=== PATIENT | male | born 1965 | race Two or more races ===

== ENCOUNTER 2017-08-23 16:59 | Emergency (ER) | payer OTHER ==
[2017-08-23 17:05] VITALS: RESP 16; TEMP 98.1; O2SAT 96
[2017-08-23] MEDS ORDERED: ACETAMINOPHEN 500 MG TAB PO ONE (17:36)
[2017-08-23] MEDS ORDERED: NS 1,000 ML IV ONE (20:50)
--- NOTE | 2017-08-23 20:56 | EDPHY ---
H & P Smoking Status: Never smoked Time Seen by Provider: 08/23/17 19:12 HPI/ROS: HPI Right big toe infection. 52-year-old male by private vehicle with his daughter. This patient reports that he had an ingrown toenail, right big toe, removed last Saturday. Reports that he has had increased pain and redness and pus from the area of the toenail removal over the last couple of days. He reports he notice right after the toenail was removed he had some blackish discoloration to the area of his distal toe around the nail. Denies a history of diabetes. ROS: Constitutional: No fever, no chills. No weakness. Musculoskeletal: As above. Skin: As above Neurological: No focal weakness or altered sensation. Past medical history: Denies any significant past medical history. Social history: Nonsmoker. No alcohol. Here with his daughter who speaks [place]. Physical Exam: General Appearance: Alert, no distress. This patient is responding to questions appropriately and in full sentences. This patient appears well- hydrated and well-nourished. Eyes: Pupils equal and round no pallor or injection. No lid edema, erythema or injection. Right big toe exam: The lateral 1/3 of the toenail has been removed at the base. There is a ulceration in its place that is purulent. The flash immediately around this ulceration is edematous and necrotic looking with blackish discoloration likely gangrene. The toe is otherwise neurovascularly intact. He has a strong dorsalis pedis pulse. Neurological: Motor sensory function is grossly intact. Cranial nerves are normal. Gait is normal. Skin: Warm and dry, no rashes. As above. Extremities are symmetrical except noted. All joints range without pain or impingement. Psychiatric: No agitation. No depression. Database: EKG: Imaging: Left big toe x-ray series: Procedures: Emergency department course: Care primarily turned over to physician temporary administrative assistant tear ride at 9:00 p.m.. Please see her notation for remaining emergency department course and disposition. Differential Diagnosis: The differential diagnosis on this patient includes but is not limited to infection of right big toe, gangrene of right big toe. This represents a partial list of diagnoses considered. These considerations are based on history , physical exam, past history, reassessment and diagnostic testing. (McCollester ,Mariah B) Constitutional: Initial Vital Signs Temperature (C) 36.7 C 08/23/17 17:02 Heart Rate 62 08/23/17 17:02 Respiratory Rate 16 08/23/17 17:02 Blood Pressure 127/65 H 08/23/17 17:02 O2 Sat (%) 96 08/23/17 17:02 O2 Delivery Mode Room Air Allergies/Adverse Reactions: No Known Allergies Allergy (Unverified 08/23/17 17:02) Home Medications: Medication Instructions Recorded Cephalexin [Keflex (*)] 500 mg PO QID #40 cap 08/23/17 Sulfamethox/Tmp 800/160 mg 1 tab PO BID #20 tab 08/23/17 [Bactrim Ds] Medical Decision Making - Diagnostics Imaging Results: Imaging Impressions Toe X-Ray 08/23/17 19:44 Impression: No evidence for an acute fracture. Chronic findings, as above. Care Turn Over: Received care patient from Dr. Singletary at 9:34 p.m. patient reports through his daughter that he developed the blackness to his toe over 1 day. On Saturday he had his toenail removed partially by his primary care provider. Denies any history of diabetes. Labs reviewed and grossly unremarkable including no signs of diabetes mellitus. Physical exam: Right big toe: Partial lateral 1/3 removed to the base. There is ulcerations and purulence with surrounding black necrotic looking material. Patient has strong pulses. Full Range of motion at his PIP and MTP joint. Light touch sensation intact. Given IV vancomycin. Patient will be discharged on Keflex Bactrim with follow up outpatient with a surgical wound clinic. Patient understands that he may have to have the area debrided and/or partially amputated if this fails. (Merna Villa) - Data Points Laboratory Results: Laboratory Results 08/23/17 20:55 08/23/17 20:55 08/23/17 08/23/17 08/23/17 20:55 20:55 20:55 WBC 7.28 10^3/uL 10^3/uL (3.80-9.50) RBC 5.07 10^6/uL 10^6/uL (4.40-6.38) Hgb 14.7 g/dL g/dL (13.7-17.5) Hct 43.0 % % (40.0-51.0) MCV 84.8 fL fL (81.5-99.8) MCH 29.0 pg pg (27.9-34.1) MCHC 34.2 g/dL g/dL (32.4-36.7) RDW 13.6 % % (11.5-15.2) Plt Count 259 10^3/uL 10^3/uL (150-400) MPV 9.8 fL fL (8.7-11.7) Neut % (Auto) 64.1 % % (39.3-74.2) Lymph % (Auto) 27.7 % % (15.0-45.0) Wilson % (Auto) 6.0 % % (4.5-13.0) Eos % (Auto) 1.5 % % (0.6-7.6) Baso % (Auto) 0.4 % % (0.3-1.7) Nucleat RBC Rel Count 0.0 % % (0.0-0.2) Absolute Neuts (auto) 4.66 10^3/uL 10^3/uL (1.70-6.50) Absolute Lymphs (auto) 2.02 10^3/uL 10^3/uL (1.00-3.00) Absolute Monos (auto) 0.44 10^3/uL 10^3/uL (0.30-0.80) Absolute Eos (auto) 0.11 10^3/uL 10^3/uL (0.03-0.40) Absolute Basos (auto) 0.03 10^3/uL 10^3/uL (0.02-0.10) Absolute Nucleated RBC 0.00 10^3/uL 10^3/uL (0-0.01) Immature Gran % 0.3 % % (0.0-1.1) Immature Gran # 0.02 10^3/uL 10^3/uL (0.00-0.10) PT 13.4 SEC SEC (12.0-15.0) INR 1.00 (0.83-1.16) APTT Pending Sodium 145 mEq/L mEq/L (135-145) Potassium 4.2 mEq/L mEq/L (3.5-5.2) Chloride 109 mEq/L mEq/L (97-110) Carbon Dioxide 22 mEq/l mEq/l (22-31) Anion Gap 14 mEq/L mEq/L (8-16) BUN 15 mg/dL mg/dL (7-23) Creatinine 1.1 mg/dL mg/dL (0.7-1.3) Estimated GFR > 60 Glucose 92 mg/dL mg/dL (70-100) Calcium 9.2 mg/dL mg/dL (8.5-10.4) Total Bilirubin 0.4 mg/dL mg/dL (0.1-1.4) Conjugated Bilirubin 0.3 mg/dL mg/dL (0.0-0.5) Unconjugated Bilirubin 0.1 mg/dL mg/dL (0.0-1.1) AST 24 IU/L IU/L (17-59) ALT 42 IU/L IU/L (21-72) Alkaline Phosphatase 76 IU/L IU/L (38-126) Total Protein 6.6 g/dL g/dL (6.3-8.2) Albumin 3.9 g/dL g/dL (3.5-5.0) Medications Given: Discontinued Medications Acetaminophen (Tylenol) 1,000 mg PO EDNOW ONE Stop: 08/23/17 17:37 Last Admin: 08/23/17 18:59 Dose: Not Given Sodium Chloride (Ns) 1,000 mls @ 0 mls/hr IV ONCE ONE; Wide Open PRN Reason: Protocol Stop: 08/23/17 20:51 Last Admin: 08/23/17 21:04 Dose: 1,000 mls Departure - Departure Disposition: Home, Routine, Self-Care Clinical Impression: Right big toe infection Condition: Good Instructions: Cellulitis (ED), Gangrene (DC) Additional Instructions: Please keep the dressing in place until seen for follow-up from the wound care clinic. Please call the wound Care Clinic on Saturday for a follow-up appointment early next week/next 3-5 days. Take all antibiotics as directed until fully complete. Referrals: [facility] [Clinic] - As per Instructions Prescriptions: Cephalexin [Keflex (*)] 500 mg PO QID #40 cap Sulfamethox/Tmp 800/160 mg [Bactrim Ds] 1 tab PO BID #20 tab
[2017-08-23 21:21] LABS: PLATELET COUNT 259 10^3/uL (150-400)
[2017-08-23 21:31] LABS: PROTIME(PATIENT) 13.4 SEC (12.0-15.0)
[2017-08-23] MEDS ORDERED: VANCOMYCIN 1.5 GM in D5W 250 ML IV ONE (21:34)
[2017-08-24 00:05] VITALS: BP 108/63; PULSE 57
== END 2017-08-23 23:58 | disposition home or self-care (01) ==
DX: L08.9 Local infection of the skin and subcutaneous tissue, unspecified (principal)
CPT/HCPCS: 96365; J3370; L4386